=== PATIENT | male | born 1995 | race Hispanic/Latino ===

== ENCOUNTER 2024-02-28 10:36 | Emergency (ER) | payer SELFPAY ==
[2024-02-28] MEDS ORDERED: Bacitracin 1 PK ONE (11:29)
[2024-02-28] MEDS ORDERED: Lidocaine 1% (PF) 30 ML VIAL ONE (11:29)
[2024-02-28] MEDS ORDERED: Boostrix 0.5 ML (Tdap) VIAL (>/=7 yrs of age) ONE (11:30)
== END 2024-02-28 12:25 | disposition home or self-care (01) ==
LOC: NAV ERS 10:36
DX: S61.412A Laceration without foreign body of left hand, initial encounter (principal); F17.210 Nicotine dependence, cigarettes, uncomplicated; F17.290 Nicotine dependence, other tobacco product, uncomplicated; Z23 Encounter for immunization; W26.0XXA Contact with knife, initial encounter
CPT/HCPCS: 12001; 90471; 90715; J2001

== ENCOUNTER 2024-03-07 17:36 | Emergency (ER) | payer SELFPAY | END 2024-03-07 18:31 | disposition home or self-care (01) | LOC: NAV ERS 17:36 | DX: S61.412D Laceration without foreign body of left hand, subsequent encounter (principal); F17.290 Nicotine dependence, other tobacco product, uncomplicated; F17.210 Nicotine dependence, cigarettes, uncomplicated; W26.9XXD Contact with unspecified sharp object(s), subsequent encounter ==